=== PATIENT | female | born 1935 | race Caucasian/White ===

== ENCOUNTER 2016-10-25 08:23 | Day surgery (SDC) | payer MEDICARE, BC ==
[2016-10-25] MEDS ORDERED: Sodium Chloride 0.9% 10 ML Syringe FLUSH PRN (08:30)
[2016-10-25 11:33] VITALS: BP 156/78
--- NOTE | 2016-10-25 14:47 | OR ---
DATE OF PROCEDURE: 10/25/2016 POSTOPERATIVE CARE: Postoperative care will be provided mainly at the [address] [place] [address] [facility] in conjunction with [facility]. PREOPERATIVE DIAGNOSIS: Cataract, right eye. PREOPERATIVE DIAGNOSIS: Cataract, right eye. PROCEDURE: Phacoemulsification with intraocular lens placement, right eye. ANESTHESIA: Topical and intracameral. ESTIMATED BLOOD LOSS: Minimal. COMPLICATIONS: None. PATHOLOGY SPECIMENS: None. SURGICAL FINDINGS: None. INDICATION FOR PROCEDURE: The patient is an 80-year-old female with history of a visually significant cataract in the right eye, which interfered with activities of daily living. This consisted of a nuclear sclerosis cataract. Following careful discussion of the risks, benefits and alternatives to cataract extraction with intraocular lens placement including blindness and , the patient elected to proceed, and informed, written consent was obtained prior to the procedure. DESCRIPTION OF THE PROCEDURE: The patient was previously identified, and a kyara placed above the right eye. All sources, including the patient, indicated that the right eye was the correct eye. The patient was subsequently taken to the operating room where standard monitors were applied. The patient was then prepped and draped in the usual sterile fashion for ophthalmic surgery. Attention was first directed at the 12 o'clock position where a paracentesis port was fashioned. Shugar solution followed by Viscoat was instilled into the eye. Attention was then directed to the 8:30 position where a triplanar incision was made in a near-clear manner using a keratome. A continuous capsulorrhexis was then made using a combination of the cystotome and Utrata forceps. Hydrodissection was achieved using a balanced salt solution, and the lens rotated nicely. Phacoemulsification was then done using a modified [id number] technique without complication. Phaco time was 9.66 CDE. The remaining cortex was removed using the irrigation/aspiration handpiece. Provisc was then instilled into the eye. A Technis lens, model [id number], at 18.0 diopters was then placed in the capsular bag using an [place] injector. The remaining viscoelastic was removed using the irrigation/aspiration forceps. All wounds were then checked and found to be watertight. The lid speculum and drapes were removed. Maxitrol ointment was placed in the patient's right eye, and the eye was shielded. The patient tolerated the procedure well. The patient was instructed to follow up tomorrow. All needle and sponge counts were correct at the end of the procedure. Rebecca Alanis MD /[id number]
== END 2016-10-25 11:30 | disposition home or self-care (01) ==
LOC: JP.SDS 08:23
PROVIDERS: ATTEND Ophthalmology
DX: H26.9 Unspecified cataract (principal); I10 Essential (primary) hypertension; E78.5 Hyperlipidemia, unspecified
CPT/HCPCS: 66984; C1780

== ENCOUNTER 2017-05-03 14:00 | Observation (INO) | payer MEDICARE, BC ==
[2017-05-03] MEDS ORDERED: Ondansetron 4 MG/2 ML SDV ONE (14:12)
[2017-05-03] MEDS ORDERED: diphenhydrAMINE 50 MG/ML SDV ONE (14:12)
--- NOTE | 2017-05-03 14:50 | EDM.PDOC ---
ED HPI GENERAL MEDICAL PROBLEM - General Chief Complaint: General Stated Complaint: VERTIGO, VIA NORTH Time Seen by Provider: 05/03/17 14:40 Source of Information: Reports: Patient, Old Records, RN History Limitations: Reports: No Limitations - History of Present Illness INITIAL COMMENTS - FREE TEXT/NARRATIVE: 81 yo female sent in with severe vertigo associated with nausea/vomiting. Has had this in the past, but not as severe. Vomited x 1 today. Sx's worse when she turns her head. Onset: Today, Sudden Onset Date: 05/03/17 Duration: Hour(s): Location: Reports: Head Quality: Reports: Other (no pain) Severity: Severe Improves with: Reports: Rest Worsens with: Reports: Movement Context: Reports: Other (pHx of the same, less severe. ) Associated Symptoms: Reports: Nausea/Vomiting. 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) (none) - Related Data Allergies Allergy/AdvReac Type Severity Reaction Status Date / Time No Known Allergies Allergy Verified 10/25/16 08:52 Home Meds: Home Meds Amoxicillin [Amoxicillin] 500 mg PO ASDIRECTED 05/16/16 [History] Aspirin [Ecotrin] 81 mg PO DAILY 05/16/16 [History] Hydrochlorothiazide [Hydrochlorothiazide] 12.5 mg PO DAILY 05/16/16 [History] Metoprolol Succinate [Metoprolol Succinate] 25 mg PO DAILY 05/16/16 [History] Lactobacillus Acidophilus [Probiotic] 1 cap PO DAILY 10/25/16 [History] Past Medical History HEENT History: Reports: None, Cataract Cardiovascular History: Reports: Heart Murmur, High Cholesterol, Hypertension Gastrointestinal History: Reports: Chronic Diarrhea, Colon Polyp, GERD Genitourinary History: Reports: None 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: Musculoskeletal History: Reports: Back Pain, Chronic Psychiatric History: Reports: Anxiety, Depression - Infectious Disease History Infectious Disease History: Reports: Chicken Pox, Measles, Mumps - Past Surgical History HEENT Surgical History: Reports: Adenoidectomy, Tonsillectomy Female Surgical History: Reports: Hysterectomy, Oophorectomy, Other (See Below) Musculoskeletal Surgical History: Reports: Arthroscopic Knee, Other (See Below) Dermatological Surgical History: Reports: Skin Biopsy Social & Family History - Family History Family Medical History: Noncontributory - Tobacco Use Smoking Status *Q: Never Smoker Used Tobacco, but Quit: No Second Hand Smoke Exposure: No - Caffeine Use Caffeine Use: Reports: Coffee - Alcohol Use Days Per Week of Alcohol Use: 0 - Recreational Drug Use Recreational Drug Use: No ED ROS GENERAL - Review of Systems Review Of Systems: See Below Constitutional: Reports: No Symptoms HEENT: Reports: No Symptoms Respiratory: Reports: No Symptoms Cardiovascular: Reports: No Symptoms GI/Abdominal: Reports: Nausea, Vomiting. Denies: Diarrhea Skin: Reports: No Symptoms Neurological: Reports: Dizziness (vertigo) Psychiatric: Reports: No Symptoms ED EXAM, GENERAL - Physical Exam Exam: See Below Exam Limited By: No Limitations General Appearance: Alert, WD/WN, No Apparent Distress Eye Exam: Bilateral Eye: Nystagmus, PERRL Ears: Normal External Exam, Normal Canal, Hearing Grossly Normal, Normal TMs Ear Exam: Bilateral Ear: Auricle Normal, Canal Normal, TM normal Nose: Normal Inspection, Normal Mucosa, No Blood Throat/Mouth: Normal Inspection, Normal Lips, Normal Teeth, Normal Oropharynx, Normal Voice, No Airway Compromise Head: Atraumatic, Normocephalic Neck: Normal Inspection, Supple, Non-Tender Respiratory/Chest: No Respiratory Distress, Lungs Clear, Normal Breath Sounds, No Accessory Muscle Use Cardiovascular: Regular Rate, Rhythm, No Edema GI/Abdominal: Soft, Non-Tender Neurological: Alert, Oriented, CN II-XII Intact, Normal Cognition, No Motor/ Sensory Deficits Psychiatric: Normal Affect, Normal Mood Skin Exam: Warm, Dry, Intact, Normal Color, No Rash Lymphatic: No Adenopathy Course - Vital Signs Text/Narrative:: Minimal improvement with IV diphenhydramine and IV Diazepam. Last Recorded V/S: Last Vital Signs Temp 34.8 C L 05/03/17 14:24 Pulse 69 05/03/17 16:57 Resp 18 05/03/17 14:24 BP 148/80 H 05/03/17 16:57 Pulse Ox 97 05/03/17 16:57 - Orders/Labs/Meds Orders: Active Orders 24 hr Category Date Time Status Head wo Cont [CT] Stat Exams 05/03/17 16:33 Taken UA W/MICROSCOPIC [URIN] Stat Lab 05/03/17 15:33 Uncollected Sodium Chloride 0.9% [Saline Flush] Med 05/03/17 15:00 Active 10 ml FLUSH ASDIRECTED PRN Saline Lock Insert [OM.PC] Routine Oth 05/03/17 15:00 Ordered Medication Orders Sodium Chloride (Saline Flush) 10 ml FLUSH ASDIRECTED PRN PRN Reason: Keep Vein Open Last Admin: 05/03/17 16:01 Dose: 10 ml Labs: Laboratory Tests 05/03/17 05/03/17 Range/Units 15:43 15:43 WBC 8.3 (4.5-11.0) K/uL RBC 4.62 (3.30-5.50) M/uL Hgb 13.9 (12.0-15.0) g/dL Hct 43.0 (36.0-48.0) % MCV 93 (80-98) fL MCH 30 (27-31) pg MCHC 32 (32-36) % Plt Count 240 (150-400) K/uL Sodium 137 L (140-148) mmol/L Potassium 4.2 (3.6-5.2) mmol/L Chloride 101 (100-108) mmol/L Carbon Dioxide 28 (21-32) mmol/L Anion Gap 12.2 (5.0-14.0) mmol/L BUN 27 H (7-18) mg/dL Creatinine 1.1 H (0.6-1.0) mg/dL Est Cr Clr Drug Dosing 40.46 mL/min Estimated GFR (MDRD) 48 L (>60) Glucose 107 H (74-106) mg/dL Calcium 9.0 (8.5-10.1) mg/dL Meds: Medications Generic Name Dose Route Start Last Admin Trade Name Freq PRN Reason Stop Dose Admin Sodium Chloride 10 ml 05/03/17 15:00 05/03/17 16:01 Saline Flush FLUSH 10 ml ASDIRECTED PRN Administration Keep Vein Open Discontinued Medications Generic Name Dose Route Start Last Admin Trade Name Freq PRN Reason Stop Dose Admin Diazepam 5 mg 05/03/17 15:31 Valium IVPUSH 05/03/17 15:32 ONETIME ONE Diazepam 4 mg 05/03/17 15:40 05/03/17 16:01 Valium IVPUSH 05/03/17 15:41 4 mg ONETIME ONE Administration Diphenhydramine HCl Confirm 05/03/17 14:12 Benadryl Administered 05/03/17 14:13 Dose 50 mg .ROUTE .STK-MED ONE Diphenhydramine HCl 50 mg 05/03/17 14:59 05/03/17 15:29 Benadryl IVPUSH 05/03/17 15:00 50 mg ONETIME ONE Administration Diphenhydramine HCl 25 mg 05/03/17 15:23 05/03/17 15:29 Benadryl IVPUSH 05/03/17 15:24 25 mg ONETIME ONE Administration Sodium Chloride 1,000 mls @ 1,000 mls/hr 05/03/17 16:32 05/03/17 17:12 Normal Saline IV 05/03/17 17:31 1,000 mls/hr .BOLUS ONE Administration Ondansetron HCl Confirm 05/03/17 14:12 Zofran Administered 05/03/17 14:13 Dose 4 mg .ROUTE .STK-MED ONE Ondansetron HCl 4 mg 05/03/17 15:00 05/03/17 15:28 Zofran IVPUSH 05/03/17 15:01 4 mg ONETIME ONE Administration Ondansetron HCl 4 mg 05/03/17 15:23 05/03/17 15:29 Zofran IVPUSH 05/03/17 15:24 4 mg ONETIME ONE Administration - Radiology Interpretation Free Text/Narrative:: No acute findings on head CT scan per radiology. CT Results Date: 05/03/17 CT Results Time: 17:30 Departure - Departure Time of Disposition: 18:00 Disposition: Refer to Observation Condition: Fair Clinical Impression: Vertigo Nausea & vomiting Qualifiers: Vomiting type: unspecified Vomiting Intractability: non-intractable Qualified Code(s): R11.2 - Nausea with vomiting, unspecified Clinical Impression: (Ruled Out): BPV (benign positional vertigo) - Discharge Information Referrals: Fausto Neri MD [Primary Care Provider] - Forms: ED Department Discharge - My Orders Last 24 Hours: My Active Orders 05/03/17 15:00 Sodium Chloride 0.9% [Saline Flush] 10 ml FLUSH ASDIRECTED PRN Saline Lock Insert [OM.PC] Routine 05/03/17 15:33 UA W/MICROSCOPIC [URIN] Stat 05/03/17 16:33 Head wo Cont [CT] Stat - Assessment/Plan Last 24 Hours: My Active Orders 05/03/17 15:00 Sodium Chloride 0.9% [Saline Flush] 10 ml FLUSH ASDIRECTED PRN Saline Lock Insert [OM.PC] Routine 05/03/17 15:33 UA W/MICROSCOPIC [URIN] Stat 05/03/17 16:33 Head wo Cont [CT] Stat
[2017-05-03] MEDS ORDERED: diphenhydrAMINE 50 MG/ML SDV IVPUSH ONE ×2 (14:59→15:23)
[2017-05-03] MEDS ORDERED: Ondansetron 4 MG/2 ML SDV IVPUSH ONE ×2 (15:00→15:23)
[2017-05-03] MEDS ORDERED: Sodium Chloride 0.9% 10 ML Syringe FLUSH PRN ×2 (15:00→19:41)
[2017-05-03] MEDS ORDERED: Sodium Chloride 0.9% 1,000 ML IV ONE (16:32)
--- NOTE | 2017-05-03 18:49 | PCM.HP ---
H&P History of Present Illness - General Date of Service: 05/03/17 Admit Problem/Dx: Admission Diagnosis/Problem Admission Diagnosis/Problem Vertigo Source of Information: Patient, Family, Provider, RN Notes Reviewed History Limitations: Reports: No Limitations - History of Present Illness Initial Comments - Free Text/Narative: Ms. Luna is an 81-year-old woman who is admitted through the emergency department to observation status for management of nausea and vomiting related to vertigo. She felt well until mid day when she noted abrupt onset of vertigo associated with nausea and vomiting. Vertigo definitely would definitely worsen with movement of the head especially to the right. She was brought into the emergency department for further evaluation, labs are unremarkable and CT scan of the head showed no acute abnormalities. Nausea has been controlled with medication in the emergency department but she is unable to stand because of the vertigo. - Related Data Allergies/Adverse Reactions: Allergies Allergy/AdvReac Type Severity Reaction Status Date / Time No Known Allergies Allergy Verified 10/25/16 08:52 Home Medications: Home Meds Amoxicillin [Amoxicillin] 500 mg PO ASDIRECTED 05/16/16 [History] Aspirin [Ecotrin] 81 mg PO DAILY 05/16/16 [History] Hydrochlorothiazide [Hydrochlorothiazide] 12.5 mg PO DAILY 05/16/16 [History] Metoprolol Succinate [Metoprolol Succinate] 25 mg PO DAILY 05/16/16 [History] Lactobacillus Acidophilus [Probiotic] 1 cap PO DAILY 10/25/16 [History] Past Medical History HEENT History: Reports: None, Cataract Cardiovascular History: Reports: Heart Murmur, High Cholesterol, Hypertension Gastrointestinal History: Reports: Chronic Diarrhea, Colon Polyp, GERD Genitourinary History: Reports: 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: Musculoskeletal History: Reports: Back Pain, Chronic Psychiatric History: Reports: Anxiety, Depression - Infectious Disease History Infectious Disease History: Reports: Chicken Pox, Measles, Mumps - Past Surgical History HEENT Surgical History: Reports: Adenoidectomy, Tonsillectomy Female Surgical History: Reports: Hysterectomy, Oophorectomy, Other (See Below) Musculoskeletal Surgical History: Reports: Arthroscopic Knee, Other (See Below) Dermatological Surgical History: Reports: Skin Biopsy Social & Family History - Family History Family Medical History: Noncontributory - Tobacco Use Smoking Status *Q: Never Smoker Used Tobacco, but Quit: No Second Hand Smoke Exposure: No - Caffeine Use Caffeine Use: Reports: Coffee - Alcohol Use Days Per Week of Alcohol Use: 0 - Recreational Drug Use Recreational Drug Use: No H&P Review of Systems - Review of Systems: Review Of Systems: See Below General: Denies: Fever, Chills, Weakness HEENT: Denies: Ear Pain, Eye Pain, Headaches, Hearing Changes Pulmonary: Reports: No Symptoms Cardiovascular: Reports: No Symptoms Gastrointestinal: Reports: Nausea, Vomiting. Denies: Abdominal Pain, Anorexia, Black Stool, Bloody Stool, Constipation, Diarrhea, Difficulty Swallowing, Distension Genitourinary: Reports: No Symptoms Musculoskeletal: Reports: No Symptoms Skin: Reports: No Symptoms Psychiatric: Reports: No Symptoms Neurological: Reports: No Symptoms Hematologic/Lymphatic: Reports: No Symptoms Immunologic: Reports: No Symptoms Exam - Exam Exam: See Below - Vital Signs Vital Signs: Last Vital Signs Temp 94.6 F L 05/03/17 14:24 Pulse 69 05/03/17 16:57 Resp 18 05/03/17 14:24 BP 148/80 H 05/03/17 16:57 Pulse Ox 97 05/03/17 16:57 Weight: 156 lb - Exam Quality Assessment: DVT Prophylaxis General: Alert, Oriented, Cooperative, Moderate Distress HEENT: Conjunctiva Clear, Hearing Intact, Mucosa Moist & [place], Normal Nasal Septum, Posterior Pharynx Clear, Pupils Equal, Pupils Reactive, TMs Clear Neck: Supple, Trachea Midline, +2 Carotid Pulse wo Bruit Lungs: Clear to Auscultation, Normal Respiratory Effort Cardiovascular: Regular Rate, Regular Rhythm, Normal S1, Normal S2. No: Systolic Murmur, Diastolic Murmur GI/Abdominal Exam: Normal Bowel Sounds, Soft, Non-Tender, No Organomegaly, No Distention Extremities: Non-Tender, No Pedal Edema Skin: Warm, Dry, Intact Neurological: Cranial Nerves Intact, Strength Equal Bilateral, Normal Speech, Normal Tone, Sensation Intact. No: Focal Deficit Neuro Extensive - Mental Status: Alert, Oriented x3, Normal Mood/Affect, Normal Cognition, Memory Intact - Patient Data Lab Results Last 24 hrs: Laboratory Results - last 24 hr 05/03/17 05/03/17 Range/Units 15:43 15:43 WBC 8.3 (4.5-11.0) K/uL RBC 4.62 (3.30-5.50) M/uL Hgb 13.9 (12.0-15.0) g/dL Hct 43.0 (36.0-48.0) % MCV 93 (80-98) fL MCH 30 (27-31) pg MCHC 32 (32-36) % Plt Count 240 (150-400) K/uL Sodium 137 L (140-148) mmol/L Potassium 4.2 (3.6-5.2) mmol/L Chloride 101 (100-108) mmol/L Carbon Dioxide 28 (21-32) mmol/L Anion Gap 12.2 (5.0-14.0) mmol/L BUN 27 H (7-18) mg/dL Creatinine 1.1 H (0.6-1.0) mg/dL Est Cr Clr Drug Dosing 40.46 mL/min Estimated GFR (MDRD) 48 L (>60) Glucose 107 H (74-106) mg/dL Calcium 9.0 (8.5-10.1) mg/dL Result Diagrams: 05/03/17 15:43 05/03/17 15:43 *Q Meaningful Use (ADM) - VTE *Q VTE Criteria *Q: - VTE Risk Assess *Q Each Risk Factor Represents 1 Point: None Total Score 1 Point Risk Factors: 0 Each Risk Factor Represents 2 Points: None Total Score 2 Point Risk Factors: 0 Each Risk Factor Represents 3 Points: Age 75 Years or Greater Total Score 3 Point Risk Factors: 3 Each Risk Factor Represents 5 Points: None Total Score 5 Point Risk Factors: 0 Venous Thromboembolism Risk Factor Score *Q: 3 - Stroke *Q Stroke Criteria *Q: - AMI *Q AMI Criteria *Q: Problem List Initiated/Reviewed/Updated: Yes Orders Last 24hrs: Active Orders 24 hr Category Date Time Status Patient Status Manage Transfer [TRANSFER] Routine ADT 05/03/17 18:38 Ordered Head wo Cont [CT] Stat Exams 05/03/17 16:33 Taken UA W/MICROSCOPIC [URIN] Stat Lab 05/03/17 15:33 Uncollected Sodium Chloride 0.9% [Saline Flush] Med 05/03/17 15:00 Active 10 ml FLUSH ASDIRECTED PRN Saline Lock Insert [OM.PC] Routine Oth 05/03/17 15:00 Ordered Resuscitation Status Routine Resus Stat 05/03/17 18:39 Ordered Medication Orders Sodium Chloride (Saline Flush) 10 ml FLUSH ASDIRECTED PRN PRN Reason: Keep Vein Open Last Admin: 05/03/17 16:01 Dose: 10 ml Assessment/Plan Comment:: ASSESSMENT AND PLAN POSITIONAL VERTIGO-abrupt onset today, associated with nausea vomiting, worse with movement of the head to the right. No other neurologic deficits, CT scan of the head unremarkable. Nausea has been controlled with medical therapy but she has ongoing vertigo leaving her unable to move or walk. -Observation admission -Anti-medic therapy as needed -PT consult in a.m. -IV fluids for hydration CORONARY ARTERY DISEASE-currently asymptomatic -Continue outpatient medical regimen MAINTENANCE ISSUES -DVT prophylaxis; Lovenox 40 mg subcutaneous daily -GI prophylaxis; not indicated -Faulkner catheter; not indicated -Nutrition; regular diet -Nicotinic dependence; not required CODE STATUS-FULL CODE ADMISSION STATUS-this patient will be admitted to observation status, expect no more than a one night hospital stay for evaluation and management of problems as outlined above. DISPOSITION-anticipate discharge to home after the hospital stay. PRIMARY CARE PROVIDER-Dr. Neri
[2017-05-03] MEDS ORDERED: LORazepam 2 MG/ML MDV IV PRN (19:41)
[2017-05-03] MEDS ORDERED: oxyCODONE 5 MG Tab PO PRN (19:41)
[2017-05-03] MEDS ORDERED: Magnesium Hydroxide 400 MG/5 ML Susp 30 ML Cup PO PRN (19:41)
[2017-05-03] MEDS ORDERED: Ondansetron 4 MG/2 ML SDV IV PRN (19:41)
[2017-05-03] MEDS ORDERED: Docusate Sodium 100 MG Cap PO PRN (19:41)
[2017-05-03] MEDS ORDERED: Sodium Chloride 0.9% 1,000 ML IV SCH (19:41)
[2017-05-03] MEDS ORDERED: Acetaminophen 325 MG Tab PO PRN (19:41)
[2017-05-03] MEDS ORDERED: Polyethylene Glycol 3350 Powder 17 GM Packet PO PRN (19:41)
[2017-05-03] MEDS: Enoxaparin 40 MG/0.4 ML Syringe SUBCUT SCH (21:32)
[2017-05-04] MEDS ORDERED: Metoprolol Succinate 25 MG Tab.ER PO SCH (09:00)
[2017-05-04] MEDS ORDERED: Hydrochlorothiazide 12.5 MG Cap PO SCH (09:00)
[2017-05-04] MEDS ORDERED: Lactobacillus Rhamnosus GG (Probiotic) Cap PO SCH (09:00)
[2017-05-04] MEDS: Aspirin 81 MG Tab.EC PO SCH (09:45)
[2017-05-04] MEDS: METOPROLOL SUCCINATE 50 MG PO SCH (09:45)
[2017-05-04] MEDS: HYDROCHLOROTHIAZIDE 25 MG PO SCH (09:45)
--- NOTE | 2017-05-04 11:10 | PCM.PN ---
- General Info Date of Service: 05/04/17 Subjective Update: Ms. Luna has noted moderate improvement in her vertigo since admission, nausea and vomiting have essentially resolved. Still gets some component of vertiginous symptoms when she gets up and moves about. Appetite has improved and she is tolerated eating. She has been seen by physical therapy this morning. - Patient Data Vitals - Most Recent: Last Vital Signs Temp 97.8 F 05/04/17 08:37 Pulse 72 05/04/17 08:37 Resp 12 05/04/17 08:37 BP 126/69 05/04/17 08:37 Pulse Ox 95 05/04/17 08:37 Weight - Most Recent: 156 lb I&O - Last 24 Hours: Intake & Output 05/03/17 05/04/17 05/04/17 22:59 06:59 14:59 Intake Total 120 340 Output Total 550 600 450 Balance -430 -600 -110 Lab Results Last 24 Hours: Laboratory Results - last 24 hr 05/03/17 Range/Units 18:45 Urine Color Yellow Urine Appearance Cloudy Urine pH 5.0 (4.5-8.0) Ur Specific [place] 1.015 (1.008-1.030) Urine Protein Negative (NEGATIVE) mg/dL Urine Glucose (UA) Normal (NEGATIVE) mg/dL Urine Ketones Negative (NEGATIVE) mg/dL Urine Occult Blood Negative (NEGATIVE) Urine Nitrite Positive H (NEGATIVE) Urine Bilirubin Negative (NEGATIVE) Urine Urobilinogen Normal (NORMAL) mg/dL Ur Leukocyte Esterase Small (NEGATIVE) Urine RBC 0-5 (0-5) Urine WBC 10-20 H (0-5) Ur Epithelial Cells Few Amorphous Sediment Few Urine Bacteria Many Urine Mucus Few Med Orders - Current: Current Medications Acetaminophen (Tylenol) 650 mg PO Q4H PRN PRN Reason: Pain (Mild 1-3)/fever Aspirin (Halfprin) 81 mg PO DAILY SHILA Docusate Sodium (Colace) 100 mg PO BID PRN PRN Reason: Constipation Enoxaparin Sodium (Lovenox) 40 mg SUBCUT Q24H [facility] Last Admin: 05/03/17 21:32 Dose: Not Given Hydrochlorothiazide (Hydrochlorothiazide) 12.5 mg PO DAILY [facility] Lactobacillus Rhamnosus (Culturelle) 1 cap PO DAILY SHILA Lorazepam (Ativan) 0.5 mg IV Q2H PRN PRN Reason: Nausea/Vomiting Magnesium Hydroxide (Milk Of Magnesia) 30 ml PO Q12H PRN PRN Reason: Constipation Metoprolol Succinate (Toprol Xl) 25 mg PO DAILY SHILA Ondansetron HCl (Zofran) 4 mg IV Q4H PRN PRN Reason: Nausea/Vomiting Oxycodone HCl (Oxycodone) 5 mg PO Q4H PRN PRN Reason: Pain (moderate 4-6) Polyethylene Glycol (Miralax) 17 gm PO DAILY PRN PRN Reason: Constipation Sodium Chloride (Saline Flush) 10 ml FLUSH ASDIRECTED PRN PRN Reason: Keep Vein Open Discontinued Medications Diazepam (Valium) 5 mg IVPUSH ONETIME ONE Stop: 05/03/17 15:32 Last Admin: 05/03/17 19:45 Dose: Not Given Diazepam (Valium) 4 mg IVPUSH ONETIME ONE Stop: 05/03/17 15:41 Last Admin: 05/03/17 16:01 Dose: 4 mg Diphenhydramine HCl (Benadryl) Confirm Administered Dose 50 mg .ROUTE .STK-MED ONE Stop: 05/03/17 14:13 Last Admin: 05/03/17 19:44 Dose: Not Given Diphenhydramine HCl (Benadryl) 50 mg IVPUSH ONETIME ONE Stop: 05/03/17 15:00 Last Admin: 05/03/17 15:29 Dose: 50 mg Diphenhydramine HCl (Benadryl) 25 mg IVPUSH ONETIME ONE Stop: 05/03/17 15:24 Last Admin: 05/03/17 15:29 Dose: 25 mg Sodium Chloride (Normal Saline) 1,000 mls @ 1,000 mls/hr IV .BOLUS ONE Stop: 05/03/17 17:31 Last Admin: 05/03/17 17:12 Dose: 1,000 mls/hr Sodium Chloride (Normal Saline) 1,000 mls @ 125 mls/hr IV ASDIRECTED [facility] Last Admin: 05/04/17 04:11 Dose: 125 mls/hr Ondansetron HCl (Zofran) Confirm Administered Dose 4 mg .ROUTE .STK-MED ONE Stop: 05/03/17 14:13 Last Admin: 05/03/17 19:45 Dose: Not Given Ondansetron HCl (Zofran) 4 mg IVPUSH ONETIME ONE Stop: 05/03/17 15:01 Last Admin: 05/03/17 15:28 Dose: 4 mg Ondansetron HCl (Zofran) 4 mg IVPUSH ONETIME ONE Stop: 05/03/17 15:24 Last Admin: 05/03/17 15:29 Dose: 4 mg Sodium Chloride (Saline Flush) 10 ml FLUSH ASDIRECTED PRN PRN Reason: Keep Vein Open Last Admin: 05/03/17 16:01 Dose: 10 ml - Exam Quality Assessment: DVT Prophylaxis General: Alert, Oriented, Cooperative, Mild Distress Lungs: Clear to Auscultation, Normal Respiratory Effort Cardiovascular: Regular Rate, Regular Rhythm, No Murmurs GI/Abdominal Exam: Normal Bowel Sounds, Soft, Non-Tender, No Organomegaly, No Distention Extremities: Non-Tender, No Pedal Edema Skin: Warm, Dry, Intact - Problem List Review Problem List Initiated/Reviewed/Updated: Yes - My Orders Last 24 Hours: My Active Orders 05/03/17 18:39 Resuscitation Status Routine 05/03/17 19:41 Patient Status [ADT] Routine Ambulate [RC] QID Height and Weight [RC] DAILY Intake and Output [RC] QSHIFT Notify Provider Vital Signs [RC] ASDIRECTED Oxygen Therapy [RC] PRN Peripheral IV Care [RC] . DIRECTED Up With Assistance [RC] ASDIRECTED Up to Chair [RC] QID VTE/DVT Education [RC] Per Unit Routine Vital Signs [RC] Q4H PT Evaluation and Treatment [CONS] Routine Acetaminophen [Tylenol] 650 mg PO Q4H PRN Docusate Sodium [Colace] 100 mg PO BID PRN LORazepam [Ativan] 0.5 mg IV Q2H PRN Magnesium Hydroxide [Milk of Magnesia] 30 ml PO Q12H PRN Ondansetron [Zofran] 4 mg IV Q4H PRN Polyethylene Glycol 3350 [MiraLAX] 17 gm PO DAILY PRN Sodium Chloride 0.9% [Saline Flush] 10 ml FLUSH ASDIRECTED PRN oxyCODONE 5 mg PO Q4H PRN Peripheral IV Insertion Adult [OM.PC] Routine 05/03/17 20:00 Enoxaparin [Lovenox] 40 mg SUBCUT Q24H 05/03/17 Dinner Regular Diet [DIET] 05/04/17 09:00 Hydrochlorothiazide 12.5 mg PO DAILY Metoprolol Succinate [Toprol XL] 25 mg PO DAILY 05/04/17 11:07 Convert IV to Saline Lock [OM.PC] Routine - Plan Plan:: ASSESSMENT AND PLAN POSITIONAL VERTIGO-moderate improvement since admission, nausea vomiting have resolved. I did perform otolith repositioning maneuvers this morning, she did not note significant improvement following this. Plan to monitor an additional 24 hours with plan for discharge to home tomorrow -Observation admission -Anti-medic therapy as needed -PT follow-up -Saline lock IV CORONARY ARTERY DISEASE-currently asymptomatic -Continue outpatient medical regimen MAINTENANCE ISSUES -DVT prophylaxis; Lovenox 40 mg subcutaneous daily -GI prophylaxis; not indicated -Faulkner catheter; not indicated -Nutrition; regular diet -Nicotinic dependence; not required CODE STATUS-FULL CODE ADMISSION STATUS-this patient will be admitted to observation status, expect no more than a one night hospital stay for evaluation and management of problems as outlined above. DISPOSITION-anticipate discharge to home tomorrow PRIMARY CARE PROVIDER-Dr. Neri
[2017-05-04] MEDS: Enoxaparin 40 MG/0.4 ML Syringe SUBCUT SCH (20:39)
[2017-05-05] MEDS ORDERED: ACIDOPHILUS PROBIOTIC PO SCH (09:00)
--- NOTE | 2017-05-05 10:12 | PCM.DCSUM1 ---
Discharge Summary - Hospital Course Brief History: Ms. Luna is an 81-year-old woman who was admitted to observation status with intractable nausea and vomiting secondary to positional vertigo. - Discharge Data Discharge Date: 05/05/17 Discharge Disposition: Home, Self-Care 01 Condition: Fair - Discharge Diagnosis/Problem(s) (1) Positional vertigo of right ear SNOMED Code(s): 685216301 ICD Code: H81.11 - BENIGN PAROXYSMAL VERTIGO, RIGHT EAR Status: Acute Current Visit: Yes (2) Nausea & vomiting SNOMED Code(s): 80094300 ICD Code: R11.2 - NAUSEA WITH VOMITING, UNSPECIFIED Status: Acute Current Visit: Yes Qualifiers: Vomiting type: unspecified Vomiting Intractability: non-intractable Qualified Code(s): R11.2 - Nausea with vomiting, unspecified - Patient Summary/Data Consults: Consultations 05/03/17 19:41 PT Evaluation and Treatment [CONS] Routine Please Evaluate and Treat. PT Reason for Consult: Vertigo This query below is only for informational purposes and is not editable. Hospital Course: Ms. Luna is an 81-year-old woman who developed abrupt onset of vertigo associated with severe nausea and vomiting. She was brought into the emergency department and treated aggressively for the nausea and vomiting. This improved but she continued to experience severe vertigo leaving her unable to transfer or ambulate. CT scan of the head without contrast was obtained in the emergency department and showed no evidence of acute abnormalities. She was admitted to the hospital on observation status for hydration and further management. Initially received IV fluids for hydration and was also seen by physical therapy for the vertigo. On the day after admission oral at repositioning maneuvers were performed which did seem to help modestly. By the day of discharge her vertigo nausea and vomiting had entirely resolved and she was feeling close to baseline. Follow-up appointment will be scheduled with her primary care provider Dr. Neri within one week. Activity will be as tolerated and she will resume her usual diet. - Patient Instructions Diet: Usual Diet as Tolerated Activity: As Tolerated Other/Special Instructions: Please schedule follow-up appointment with Dr. Neri within one week. - Discharge Plan Home Medications: Home Meds Amoxicillin 500 mg PO ASDIRECTED 05/16/16 [History] Aspirin [Ecotrin] 81 mg PO DAILY 11/16/16 [History] Hydrochlorothiazide 12.5 mg PO DAILY 05/16/16 [History] Metoprolol Succinate 25 mg PO DAILY 05/16/16 [History] Lactobacillus Acidophilus [Probiotic] 1 cap PO DAILY 10/25/16 [History] Sertraline [Zoloft] 25 mg PO DAILY 05/04/17 [History] Referrals: Fausto Neri MD [Primary Care Provider] - - Patient Data Vitals - Most Recent: Last Vital Signs Temp 97.8 F 05/05/17 07:13 Pulse 66 05/05/17 07:13 Resp 16 05/05/17 07:13 BP 140/77 05/05/17 07:13 Pulse Ox 95 05/05/17 07:13 Weight - Most Recent: 170 lb 9.6 oz I&O - Last 24 hours: Intake & Output 05/04/17 05/05/17 05/05/17 23:59 06:59 14:59 Intake Total 480 Output Total 700 Balance -220 Med Orders - Current: Current Medications Acetaminophen (Tylenol) 650 mg PO Q4H PRN PRN Reason: Pain (Mild 1-3)/fever Aspirin (Halfprin) 81 mg PO DAILY [facility] Last Admin: 05/04/17 09:45 Dose: 81 mg Docusate Sodium (Colace) 100 mg PO BID PRN PRN Reason: Constipation Enoxaparin Sodium (Lovenox) 40 mg SUBCUT Q24H [facility] Last Admin: 05/04/17 20:39 Dose: Not Given Hydrochlorothiazide (Hydrochlorothiazide) 12.5 mg PO DAILY [facility] Last Admin: 05/04/17 09:45 Dose: 12.5 mg Lactobacillus Rhamnosus (Culturelle) 1 cap PO DAILY [facility] Lorazepam (Ativan) 0.5 mg IV Q2H PRN PRN Reason: Nausea/Vomiting Magnesium Hydroxide (Milk Of Magnesia) 30 ml PO Q12H PRN PRN Reason: Constipation Metoprolol Succinate (Toprol Xl) 25 mg PO DAILY [facility] Last Admin: 05/04/17 09:45 Dose: 25 mg Ondansetron HCl (Zofran) 4 mg IV Q4H PRN PRN Reason: Nausea/Vomiting Oxycodone HCl (Oxycodone) 5 mg PO Q4H PRN PRN Reason: Pain (moderate 4-6) Polyethylene Glycol (Miralax) 17 gm PO DAILY PRN PRN Reason: Constipation Sodium Chloride (Saline Flush) 10 ml FLUSH ASDIRECTED PRN PRN Reason: Keep Vein Open Discontinued Medications Diazepam (Valium) 5 mg IVPUSH ONETIME ONE Stop: 05/03/17 15:32 Last Admin: 05/03/17 19:45 Dose: Not Given Diazepam (Valium) 4 mg IVPUSH ONETIME ONE Stop: 05/03/17 15:41 Last Admin: 05/03/17 16:01 Dose: 4 mg Diphenhydramine HCl (Benadryl) Confirm Administered Dose 50 mg .ROUTE .STK-MED ONE Stop: 05/03/17 14:13 Last Admin: 05/03/17 19:44 Dose: Not Given Diphenhydramine HCl (Benadryl) 50 mg IVPUSH ONETIME ONE Stop: 05/03/17 15:00 Last Admin: 05/03/17 15:29 Dose: 50 mg Diphenhydramine HCl (Benadryl) 25 mg IVPUSH ONETIME ONE Stop: 05/03/17 15:24 Last Admin: 05/03/17 15:29 Dose: 25 mg Sodium Chloride (Normal Saline) 1,000 mls @ 1,000 mls/hr IV .BOLUS ONE Stop: 05/03/17 17:31 Last Admin: 05/03/17 17:12 Dose: 1,000 mls/hr Sodium Chloride (Normal Saline) 1,000 mls @ 125 mls/hr IV ASDIRECTED [facility] Last Admin: 05/04/17 04:11 Dose: 125 mls/hr Lactobacillus Rhamnosus (Culturelle) 1 cap PO DAILY [facility] Last Admin: 05/04/17 09:45 Dose: 1 cap Ondansetron HCl (Zofran) Confirm Administered Dose 4 mg .ROUTE .STK-MED ONE Stop: 05/03/17 14:13 Last Admin: 05/03/17 19:45 Dose: Not Given Ondansetron HCl (Zofran) 4 mg IVPUSH ONETIME ONE Stop: 05/03/17 15:01 Last Admin: 05/03/17 15:28 Dose: 4 mg Ondansetron HCl (Zofran) 4 mg IVPUSH ONETIME ONE Stop: 05/03/17 15:24 Last Admin: 05/03/17 15:29 Dose: 4 mg Sodium Chloride (Saline Flush) 10 ml FLUSH ASDIRECTED PRN PRN Reason: Keep Vein Open Last Admin: 05/03/17 16:01 Dose: 10 ml *Q Meaningful Use (DIS) - VTE *Q VTE Criteria *Q: - Stroke *Q Stroke Criteria *Q: - AMI *Q AMI Criteria *Q:
[2017-05-05] MEDS: METOPROLOL SUCCINATE 50 MG PO SCH (10:19)
[2017-05-05] MEDS: HYDROCHLOROTHIAZIDE 25 MG PO SCH (10:20)
[2017-05-05] MEDS: Aspirin 81 MG Tab.EC PO SCH (10:22)
[2017-05-05 10:24] VITALS: BP 144/77
== END 2017-05-05 12:50 | disposition home or self-care (01) ==
LOC: JP.ED 14:00 → JP.MS 18:38
PROVIDERS: ADMIT Hospitalist; ATTEND Hospitalist
DX: H81.11 Benign paroxysmal vertigo, right ear (principal); R11.2 Nausea with vomiting, unspecified; I10 Essential (primary) hypertension; E78.00 Pure hypercholesterolemia, unspecified; K21.9 Gastro-esophageal reflux disease without esophagitis; F41.9 Anxiety disorder, unspecified; F32.9 Major depressive disorder, single episode, unspecified; K52.9 Noninfective gastroenteritis and colitis, unspecified; Z79.82 Long term (current) use of aspirin; Z79.2 Long term (current) use of antibiotics; Z79.899 Other long term (current) drug therapy; Z90.710 Acquired absence of both cervix and uterus; Z98.890 Other specified postprocedural states
CPT/HCPCS: 36415; 70450; 80048; 81001; 85027; 87086; 87088; 87186; 96361; 96374; 96375; 96376; 97161; 97535; 99285; A9270; J1200; J2405; J3360; J7040; J7050; 99217; 99219; 99224; 99284; G0378

== ENCOUNTER 2018-02-14 12:27 | Emergency (ER) | payer MEDICARE, BC | END 2018-02-14 13:30 | disposition left against medical advice (07) | LOC: JP.ED 12:27 | DX: Z53.21 Procedure and treatment not carried out due to patient leaving prior to being seen by health care provider (principal) ==

== ENCOUNTER 2018-03-17 10:20 | Emergency (ER) | payer MEDICARE, BC ==
[2018-03-17 10:59] VITALS: BP 143/64
--- NOTE | 2018-03-17 11:24 | EDM.PDOC ---
ED HPI GENERAL MEDICAL PROBLEM - General Chief Complaint: Cardiovascular Problem Stated Complaint: LOW PULSE Time Seen by Provider: 03/17/18 11:09 Source of Information: Reports: Patient, Family, RN Notes Reviewed History Limitations: Reports: No Limitations - History of Present Illness INITIAL COMMENTS - FREE TEXT/NARRATIVE: 82-year-old female presents emergency department today complaint of slow heart rate and feeling poorly, she is had this issue for the last month or so has been evaluated by her primary care who has ordered a Holter monitor she is not had that placed. She is on metoprolol which she states she did stop for 2 week period time and felt no difference however she has not taken the medication today other than feeling tired and run down has no other complaints - Related Data Allergies Allergy/AdvReac Type Severity Reaction Status Date / Time No Known Allergies Allergy Verified 03/17/18 10:56 Home Meds: Home Meds Amoxicillin 500 mg PO ASDIRECTED 05/16/16 [History] Aspirin [Ecotrin] 81 mg PO DAILY 05/16/16 [History] Hydrochlorothiazide 12.5 mg PO DAILY 05/16/16 [History] Metoprolol Succinate 25 mg PO DAILY 05/16/16 [History] Lactobacillus Acidophilus [Probiotic] 1 cap PO DAILY 10/25/16 [History] Sertraline [Zoloft] 50 mg PO DAILY 05/04/17 [History] Diphenoxylate HCl/Atropine [Lomotil] 1 tab PO ASDIRECTED PRN 03/17/18 [History] Past Medical History HEENT History: Reports: Cataract Cardiovascular History: Reports: Heart Murmur, High Cholesterol, Hypertension Gastrointestinal History: Reports: Chronic Diarrhea, Colon Polyp, GERD 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: Musculoskeletal History: Reports: Back Pain, Chronic Neurological History: Reports: Vertigo Psychiatric History: Reports: Anxiety, Depression - Infectious Disease History Infectious Disease History: Reports: Chicken Pox, Measles, Mumps - Past Surgical History HEENT Surgical History: Reports: Adenoidectomy, Tonsillectomy Female Surgical History: Reports: Hysterectomy, Oophorectomy Musculoskeletal Surgical History: Reports: Arthroscopic Knee Dermatological Surgical History: Reports: Skin Biopsy Social & Family History - Family History Family Medical History: Noncontributory - Tobacco Use Smoking Status *Q: Never Smoker - Caffeine Use Caffeine Use: Reports: Coffee, Soda - Recreational Drug Use Recreational Drug Use: No ED ROS GENERAL - Review of Systems Review Of Systems: See Below Constitutional: Reports: Weakness, Fatigue HEENT: Reports: No Symptoms Respiratory: Reports: No Symptoms Cardiovascular: Reports: Other (bradycardia) GI/Abdominal: Reports: No Symptoms : Reports: No Symptoms ED EXAM, GENERAL - Physical Exam Exam: See Below Exam Limited By: No Limitations General Appearance: Alert, WD/WN, No Apparent Distress Eye Exam: Bilateral Eye: PERRL Ears: Normal External Exam ( an area of suspicious E [place] 6 not a hard time not to heart rate today bradycardia and A. fib with RVR chest pain), Normal Canal, Hearing Grossly Normal, Normal TMs Nose: Normal Inspection, Normal Mucosa, No Blood Throat/Mouth: Normal Inspection, Normal Lips, Normal Teeth, Normal Gums, Normal Oropharynx, Normal Voice, No Airway Compromise Head: Atraumatic, Normocephalic Neck: Normal Inspection, Supple, Non-Tender, Full Range of Motion Respiratory/Chest: No Respiratory Distress, Lungs Clear, Normal Breath Sounds, No Accessory Muscle Use Cardiovascular: Regular Rate, Rhythm, Systolic Murmur GI/Abdominal: Soft, Non-Tender Back Exam: Normal Inspection, Full Range of Motion Neurological: Alert, Oriented Course - Vital Signs Last Recorded V/S: Last Vital Signs Temp 96.7 F 03/17/18 10:59 Pulse 68 03/17/18 10:59 Resp 15 03/17/18 10:59 BP 143/64 H 03/17/18 10:59 Pulse Ox 99 03/17/18 10:59 - Orders/Labs/Meds Orders: Active Orders 24 hr Category Date Time Status Cardiac Monitoring [RC] .As Directed Care 03/17/18 11:17 Active EKG Documentation Completion [RC] ASDIRECTED Care 03/17/18 11:18 Active EKG 12 Lead [EK] Stat Ther 03/17/18 11:18 Ordered Labs: Laboratory Tests 03/17/18 03/17/18 03/17/18 Range/Units 11:38 11:38 11:38 WBC 8.6 (4.5-11.0) K/uL RBC 4.66 (3.30-5.50) M/uL Hgb 14.0 (12.0-15.0) g/dL Hct 42.7 (36.0-48.0) % MCV 92 (80-98) fL MCH 30 (27-31) pg MCHC 33 (32-36) % Plt Count 278 (150-400) K/uL Neut % (Auto) 75 H (36-66) % Lymph % (Auto) 17 L (24-44) % [place] % (Auto) 8 H (2-6) % Eos % (Auto) 1 L (2-4) % Baso % (Auto) 0 (0-1) % Sodium 139 L (140-148) mmol/L Potassium 3.7 (3.6-5.2) mmol/L Chloride 104 (100-108) mmol/L Carbon Dioxide 28 (21-32) mmol/L Anion Gap 10.7 (5.0-14.0) mmol/L BUN 20 H (7-18) mg/dL Creatinine 1.1 H (0.6-1.0) mg/dL Est Cr Clr Drug Dosing 39.78 mL/min Estimated GFR (MDRD) 48 L (>60) Glucose 99 (74-106) mg/dL Calcium 9.1 (8.5-10.1) mg/dL Total Bilirubin 0.5 (0.2-1.0) mg/dL AST 20 (15-37) U/L ALT 26 (12-78) U/L Alkaline Phosphatase 85 (46-116) U/L Troponin I < 0.017 (0.000-0.056) ng/mL Total Protein 6.6 (6.4-8.2) g/dL Albumin 3.4 (3.4-5.0) g/dL Globulin 3.2 (2.3-3.5) g/dL Albumin/Globulin Ratio 1.1 L (1.2-2.2) TSH, Ultra Sensitive 2.750 (0.358-3.740) uIU/mL Departure - Departure Time of Disposition: 13:37 Disposition: Home, Self-Care 01 Condition: Good Clinical Impression: Rula Horta Referrals: Fausto Neri MD [Primary Care Provider] - Forms: ED Department Discharge Additional Instructions: Start the calcium channel chandana of amlodipine 1 tablet once a day please follow-up with your primary care provider in the next 7-10 days call return to the emergency department worsening of symptoms - My Orders Last 24 Hours: My Active Orders 03/17/18 11:17 Cardiac Monitoring [RC] .As Directed 03/17/18 11:18 EKG Documentation Completion [RC] ASDIRECTED EKG 12 Lead [EK] Stat - Assessment/Plan Last 24 Hours: My Active Orders 03/17/18 11:17 Cardiac Monitoring [RC] .As Directed 03/17/18 11:18 EKG Documentation Completion [RC] ASDIRECTED EKG 12 Lead [EK] Stat Plan: Assessment Acuity = acute Site and laterality = bigeminy Etiology = unclear etiology Manifestations = none Location of injury = Home Lab values = CBC unremarkable, creatinine elevated 1.1 consistent chronic renal failure stage G IIIB, TSH normal euthymic at 2.75, EKG demonstrates bigeminy sinus rhythm, chest x-ray shows no acute process Plan Called discussed case with primary care provider he will see her in a couple day follow-up in the meantime we'll start a calcium channel chandana amlodipine 2.5 mg once a day in combination with metoprolol 25 mg once a day for reevaluation This note was dictated using [employer] voice recognition software please call with any questions on syntax or grammar.
--- NOTE | 2018-03-17 11:55 | CR ---
CHEST: 2 view CLINICAL HISTORY:Bradycardia COMPARISON:None FINDINGS: Heart size and pulmonary vascularity are normal. There are atherosclerotic changes in the aorta. No infiltrate, effusion or pneumothorax is seen. IMPRESSION: No acute cardiopulmonary process
== END 2018-03-17 14:18 | disposition home or self-care (01) ==
LOC: JP.ED 10:20
DX: R00.8 Other abnormalities of heart beat (principal); I10 Essential (primary) hypertension; Z79.82 Long term (current) use of aspirin; Z79.899 Other long term (current) drug therapy
CPT/HCPCS: 36415; 71046; 71046-26; 80053; 84443; 84484; 85025; 93005; 93010; 99284-25

== ENCOUNTER 2019-12-13 16:16 | Emergency (ER) | payer MEDICARE, BC ==
[2019-12-13] MEDS ORDERED: Alum Hydrox/Mag Hydrox/Simeth 15 ML, Lidocaine 2% 15 ML PO ONE ×2 (17:08)
--- NOTE | 2019-12-13 17:42 | EDM.PDOC ---
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 Food tastes bad to her. She reports nausea and occasional vomiting. Her BMs have been normal. She notes a fever of 100.1 F on occassion but not for over 1 week. No chills or sweating. No history of heart problems. She notes a sensitive stomach. She had a clinic visit 8 days ago and diagnosed with UTI and given Rx of Cipro. She thinks Cipro caused more stomach problems. - Related Data Allergies Allergy/AdvReac Type Severity Reaction Status Date / Time No Known Allergies Allergy Verified 12/13/19 16:31 Home Meds: Home Meds Aspirin [Ecotrin EC] 81 mg PO DAILY 05/16/16 [History] Hydrochlorothiazide 12.5 mg PO DAILY 05/16/16 [History] Metoprolol Succinate 25 mg PO DAILY 05/16/16 [History] Lactobacillus Acidophilus [Probiotic] 1 cap PO DAILY 10/25/16 [History] Sertraline [Zoloft] 50 mg PO DAILY 05/04/17 [History] Diphenoxylate HCl/Atropine [Lomotil] 1 tab PO ASDIRECTED PRN 03/17/18 [History] amLODIPine [Norvasc] 2.5 mg PO DAILY #30 tab 03/17/18 [Rx] Ciprofloxacin [Ciprofloxacin HCl] 500 mg PO BID 12/13/19 [History] Past Medical History HEENT History: Reports: Cataract Cardiovascular History: Reports: Heart Murmur, High Cholesterol, Hypertension Gastrointestinal History: Reports: Chronic Diarrhea, Colon Polyp, GERD Genitourinary History: Reports: None 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: Musculoskeletal History: Reports: Back Pain, Chronic Neurological History: Reports: Vertigo Psychiatric History: Reports: Anxiety, Depression - Infectious Disease History Infectious Disease History: Reports: C-Difficile, Measles, Mumps - Past Surgical History HEENT Surgical History: Reports: Adenoidectomy, Tonsillectomy Cardiovascular Surgical History: Reports: None Female Surgical History: Reports: Hysterectomy, Oophorectomy, Other (See Below) Other Female Surgeries/Procedures: bladder suspension Musculoskeletal Surgical History: Reports: Arthroscopic Knee Dermatological Surgical History: Reports: Skin Biopsy Social & Family History - Family History Family Medical History: Noncontributory - Tobacco Use Smoking Status *Q: Never Smoker - Caffeine Use Caffeine Use: Reports: Coffee, Soda - Recreational Drug Use Recreational Drug Use: No ED ROS GENERAL - Review of Systems Review Of Systems: See Below Constitutional: Reports: Fever, Decreased Appetite, Weight Loss. Denies: Chills , Night Sweats, Diaphoresis Respiratory: Reports: No Symptoms Cardiovascular: Reports: Chest Pain Endocrine: Reports: Polydypsia, Polyuria GI/Abdominal: Denies: Constipation, Diarrhea, Nausea : Reports: Dysuria Musculoskeletal: Reports: No Symptoms Skin: Reports: No Symptoms Neurological: Reports: No Symptoms Psychiatric: Reports: Anxiety Hematologic/Lymphatic: Reports: No Symptoms Immunologic: Reports: No Symptoms ED EXAM, GENERAL - Physical Exam Exam: See Below Exam Limited By: No Limitations General Appearance: Alert, WD/WN, No Apparent Distress Ears: Normal External Exam, Normal Canal Nose: Normal Inspection Throat/Mouth: Normal Inspection Respiratory/Chest: No Respiratory Distress, Lungs Clear, Normal Breath Sounds Cardiovascular: Regular Rate, Rhythm, No Murmur GI/Abdominal: Normal Bowel Sounds, Non-Tender Extremities: Normal Inspection, Normal Range of Motion Neurological: Alert, Oriented Course - Vital Signs Text/Narrative:: She has normal vital signs and exam. She has a normal chest xr, ECG, CBC, CMP, lipase and CRP. Her U/A is normal. She had a normal abd/pelvis CT. I believe her GI symptoms are related to gastritis. She can stop Cipro and use Pepcid as usual. She will f/u with her pcp. Her troponin is normal. Last Recorded V/S: Last Vital Signs Temp 36.4 C 12/13/19 16:41 Pulse 59 L 12/13/19 19:25 Resp 16 12/13/19 19:25 BP 181/64 H 12/13/19 19:25 Pulse Ox 98 12/13/19 19:25 - Orders/Labs/Meds Orders: Active Orders 24 hr Category Date Time Status Chest 2V [CR] Stat Exams 12/13/19 17:38 Taken Iopamidol [Isovue-300 (61%)] Med 12/13/19 18:15 Active 100 ml IV . DIRECTED Sodium Chloride 0.9% [Normal Saline] 100 ml Med 12/13/19 18:15 Active IV ASDIRECTED Medication Orders Sodium Chloride (Normal Saline) 100 mls @ 3 mls/sec IV ASDIRECTED [facility] Last Admin: 12/13/19 19:04 Dose: 3 mls/sec Iopamidol (Isovue-300 (61%)) 100 ml IV . DIRECTED [facility] Last Admin: 12/13/19 19:05 Dose: 100 ml Labs: Laboratory Tests 12/13/19 12/13/19 12/13/19 Range/Units 17:36 17:50 17:50 WBC 10.0 (4.5-11.0) K/uL RBC 4.59 (3.30-5.50) M/uL Hgb 13.7 (12.0-15.0) g/dL Hct 42.4 (36.0-48.0) % MCV 92 (80-98) fL MCH 30 (27-31) pg MCHC 32 (32-36) % Plt Count 315 (150-400) K/uL Neut % (Auto) 75 H (36-66) % Lymph % (Auto) 15 L (24-44) % [place] % (Auto) 9 H (2-6) % Eos % (Auto) 1 L (2-4) % Baso % (Auto) 0 (0-1) % Sodium 138 L (140-148) mmol/L Potassium 3.3 L (3.6-5.2) mmol/L Chloride 99 L (100-108) mmol/L Carbon Dioxide 30 (21-32) mmol/L Anion Gap 12.3 (5.0-14.0) mmol/L BUN 12 (7-18) mg/dL Creatinine 1.3 H (0.6-1.0) mg/dL Est Cr Clr Drug Dosing 32.50 mL/min Estimated GFR (MDRD) 39 L (>60) Glucose 112 H (74-106) mg/dL Calcium 9.2 (8.5-10.1) mg/dL Total Bilirubin 0.4 (0.2-1.0) mg/dL AST 20 (15-37) U/L ALT 26 (12-78) U/L Alkaline Phosphatase 94 (46-116) U/L Troponin I < 0.017 (0.000-0.056) ng/mL C-Reactive Protein 0.23 (0.0-0.3) mg/dL Total Protein 7.4 (6.4-8.2) g/dL Albumin 3.9 (3.4-5.0) g/dL Globulin 3.5 (2.3-3.5) g/dL Albumin/Globulin Ratio 1.1 L (1.2-2.2) Lipase 130 (73-393) U/L Urine Color (YELLOW) Urine Appearance (CLEAR) Urine pH (5.0-8.0) Ur Specific [place] (1.008-1.030) Urine Protein (NEGATIVE) mg/dL Urine Glucose (UA) (NEGATIVE) mg/dL Urine Ketones (NEGATIVE) mg/dL Urine Occult Blood (NEGATIVE) Urine Nitrite (NEGATIVE) Urine Bilirubin (NEGATIVE) Urine Urobilinogen (0.2-1.0) EU/dL Ur Leukocyte Esterase (NEGATIVE) Urine RBC (0-5) Urine WBC (0-5) Ur Epithelial Cells Amorphous Sediment Urine Bacteria Urine Mucus 12/13/19 Range/Units 17:51 WBC (4.5-11.0) K/uL RBC (3.30-5.50) M/uL Hgb (12.0-15.0) g/dL Hct (36.0-48.0) % MCV (80-98) fL MCH (27-31) pg MCHC (32-36) % Plt Count (150-400) K/uL Neut % (Auto) (36-66) % Lymph % (Auto) (24-44) % [place] % (Auto) (2-6) % Eos % (Auto) (2-4) % Baso % (Auto) (0-1) % Sodium (140-148) mmol/L Potassium (3.6-5.2) mmol/L Chloride (100-108) mmol/L Carbon Dioxide (21-32) mmol/L Anion Gap (5.0-14.0) mmol/L BUN (7-18) mg/dL Creatinine (0.6-1.0) mg/dL Est Cr Clr Drug Dosing mL/min Estimated GFR (MDRD) (>60) Glucose (74-106) mg/dL Calcium (8.5-10.1) mg/dL Total Bilirubin (0.2-1.0) mg/dL AST (15-37) U/L ALT (12-78) U/L Alkaline Phosphatase (46-116) U/L Troponin I (0.000-0.056) ng/mL C-Reactive Protein (0.0-0.3) mg/dL Total Protein (6.4-8.2) g/dL Albumin (3.4-5.0) g/dL Globulin (2.3-3.5) g/dL Albumin/Globulin Ratio (1.2-2.2) Lipase (73-393) U/L Urine Color Yellow (YELLOW) Urine Appearance Clear (CLEAR) Urine pH 6.5 (5.0-8.0) Ur Specific [place] 1.015 (1.008-1.030) Urine Protein Negative (NEGATIVE) mg/dL Urine Glucose (UA) Negative (NEGATIVE) mg/dL Urine Ketones Negative (NEGATIVE) mg/dL Urine Occult Blood Negative (NEGATIVE) Urine Nitrite Negative (NEGATIVE) Urine Bilirubin Negative (NEGATIVE) Urine Urobilinogen 0.2 (0.2-1.0) EU/dL Ur Leukocyte Esterase Negative (NEGATIVE) Urine RBC 0-5 (0-5) Urine WBC 0-5 (0-5) Ur Epithelial Cells Few Amorphous Sediment Rare Urine Bacteria Not seen Urine Mucus Not seen Meds: Medications Generic Name Dose Route Start Last Admin Trade Name Freq PRN Reason Stop Dose Admin Sodium Chloride 100 mls @ 3 mls/sec 12/13/19 18:15 12/13/19 19:04 Normal Saline IV 3 mls/sec ASDIRECTED SHILA Administration Iopamidol 100 ml 12/13/19 18:15 12/13/19 19:05 Isovue-300 (61%) IV 100 ml . DIRECTED SHILA Administration Discontinued Medications Generic Name Dose Route Start Last Admin Trade Name Freq PRN Reason Stop Dose Admin Al Hydroxide/Mg Hydroxide 15 0 ml 12/13/19 17:08 12/13/19 17:14 ml/ Lidocaine HCl 15 ml PO 12/13/19 17:09 15 ml ONETIME ONE Administration Sodium Chloride 10 ml 12/13/19 18:01 12/13/19 19:04 Saline Flush FLUSH 12/13/19 18:02 10 ml ONETIME ONE Administration Departure - Departure Time of Disposition: 19:50 Disposition: DC[facility] 05 Condition: Good Clinical Impression: Epigastric pain - Discharge Information *PRESCRIPTION DRUG MONITORING PROGRAM REVIEWED*: No *COPY OF PRESCRIPTION DRUG MONITORING REPORT IN PATIENT JANETH: No Referrals: PCP,None [Primary Care Provider] - Forms: ED Department Discharge Additional Instructions: Continue to take Pepcid and followup with your doctor as needed. Return to the ER as needed. Sepsis Event Note (ED) - Evaluation Sepsis Screening Result: No Definite Risk - Focused Exam Vital Signs: Vital Signs Temp Pulse Resp BP Pulse Ox 12/13/19 19:25 59 L 16 181/64 H 98 12/13/19 18:42 64 12 162/69 H 98 12/13/19 17:29 12 169/76 H 99 12/13/19 16:41 36.4 C 62 12 149/66 H 97 - My Orders Last 24 Hours: My Active Orders 12/13/19 17:38 Chest 2V [CR] Stat 12/13/19 18:15 Iopamidol [Isovue-300 (61%)] 100 ml IV . DIRECTED Sodium Chloride 0.9% [Normal Saline] 100 ml IV ASDIRECTED - Assessment/Plan Last 24 Hours: My Active Orders 12/13/19 17:38 Chest 2V [CR] Stat 12/13/19 18:15 Iopamidol [Isovue-300 (61%)] 100 ml IV . DIRECTED Sodium Chloride 0.9% [Normal Saline] 100 ml IV ASDIRECTED
[2019-12-13] MEDS ORDERED: Sodium Chloride 0.9% 10 ML Syringe FLUSH ONE (18:01)
[2019-12-13] MEDS ORDERED: Iopamidol 612 MG/ML 100 ML Bottle IV SCH (18:15)
[2019-12-13] MEDS ORDERED: Sodium Chloride 0.9% 100 ML IV SCH (18:15)
[2019-12-13 19:27] VITALS: BP 181/64; PULSE 59
--- NOTE | 2019-12-13 19:27 | CRLCT ---
INDICATION: Weight loss and anorexia. TECHNIQUE: CT abdomen and pelvis acquired with 100 cc Isovue-300 IV contrast. COMPARISON: None. FINDINGS: Lower chest: Unremarkable. Liver: Single small simple appearing cyst. Otherwise unremarkable liver. Gallbladder and bile ducts: Unremarkable. No stones or inflammation. No biliary dilatation. Pancreas: Unremarkable. No mass or inflammation. Spleen: Unremarkable. Normal in size. No masses. Adrenal glands: Unremarkable. No nodules. Kidneys: Few small benign-appearing cysts. Otherwise unremarkable kidneys. GI tract: Unremarkable. Normal in caliber. No sign of mass or inflammation. Appendix not visualized. Vasculature: Aortic atherosclerosis without aneurysm. Mesenteric arteries are patent. Lymph nodes: No lymphadenopathy. Omentum/Peritoneum/Abdominal Wall: Unremarkable. No sign of mass or infiltration. No free air or significant free fluid. Pelvis: Unremarkable. Bones: Unremarkable for age. IMPRESSION: No acute or significant findings in the abdomen or pelvis. No specific finding to explain weight loss or anorexia. Dictated by Dangelo Pratt MD @ 12/13/2019 7:25:21 PM Please note that all CT scans at this facility use dose modulation, iterative reconstruction, and/or weight-based dosing when appropriate to reduce radiation dose to as low as reasonably achievable. Dictated by: Dangelo Pratt MD @ 12/13/2019 19:25:29 (Electronically Signed)
--- NOTE | 2019-12-14 09:56 | CR ---
CHEST: 2 view CLINICAL HISTORY:Cough COMPARISON:2017 FINDINGS: The heart size, pulmonary vascularity and hilar structures are normal. No infiltrate effusion or pneumothorax is seen. Lungs are mildly hyperaerated IMPRESSION: No acute cardiopulmonary process. Mild hyperaeration
== END 2019-12-13 20:02 | disposition designated cancer center or children's hospital (05) ==
LOC: JP.ED 16:16
DX: R10.13 Epigastric pain (principal); F32.9 Major depressive disorder, single episode, unspecified; F41.9 Anxiety disorder, unspecified; Z79.82 Long term (current) use of aspirin; Z79.899 Other long term (current) drug therapy
CPT/HCPCS: 36415; 71046; 74177; 80053; 81001; 83690; 84484; 85025; 86140; 93005; 93010; 99283; 99285; A9270; J7050; Q9967

== ENCOUNTER 2019-12-15 11:50 | Emergency (ER) | payer MEDICARE, BC ==
[2019-12-15 12:13] VITALS: BP 124/75; PULSE 78
[2019-12-15] MEDS ORDERED: Ondansetron 4 MG/2 ML SDV IVPUSH ONE (13:02)
--- NOTE | 2019-12-15 13:03 | EDM.PDOC ---
ED HPI GENERAL MEDICAL PROBLEM - General Chief Complaint: General Stated Complaint: ABD ISSUES? Time Seen by Provider: 12/15/19 13:00 Source of Information: Reports: Patient History Limitations: Reports: No Limitations - History of Present Illness INITIAL COMMENTS - FREE TEXT/NARRATIVE: pt is feeling very depressed but not suicidal. She is nauseated and she has not been eating. She is feeling very nauseated. Onset: Gradual Duration: Day(s): Location: Reports: Abdomen Associated Symptoms: Reports: Nausea/Vomiting, Other (pt is not eating. ) Abdomen Pain Score (Numeric/FACES): 9 - Related Data Allergies Allergy/AdvReac Type Severity Reaction Status Date / Time No Known Allergies Allergy Verified 12/13/19 16:31 Home Meds: Home Meds Aspirin [Ecotrin EC] 81 mg PO DAILY 05/16/16 [History] Hydrochlorothiazide 12.5 mg PO DAILY 05/16/16 [History] Metoprolol Succinate 25 mg PO DAILY 05/16/16 [History] Lactobacillus Acidophilus [Probiotic] 1 cap PO DAILY 10/25/16 [History] Sertraline [Zoloft] 50 mg PO DAILY 05/04/17 [History] Diphenoxylate HCl/Atropine [Lomotil] 1 tab PO ASDIRECTED PRN 03/17/18 [History] amLODIPine [Norvasc] 2.5 mg PO DAILY #30 tab 03/17/18 [Rx] Past Medical History HEENT History: Reports: Cataract Cardiovascular History: Reports: Heart Murmur, High Cholesterol, Hypertension Gastrointestinal History: Reports: Chronic Diarrhea, Colon Polyp, GERD Genitourinary History: Reports: None 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: Musculoskeletal History: Reports: Back Pain, Chronic Neurological History: Reports: Vertigo Psychiatric History: Reports: Anxiety, Depression - Infectious Disease History Infectious Disease History: Reports: C-Difficile, Measles, Mumps - Past Surgical History HEENT Surgical History: Reports: Adenoidectomy, Tonsillectomy Cardiovascular Surgical History: Reports: None Female Surgical History: Reports: Hysterectomy, Oophorectomy, Other (See Below) Other Female Surgeries/Procedures: bladder suspension Musculoskeletal Surgical History: Reports: Arthroscopic Knee Dermatological Surgical History: Reports: Skin Biopsy Social & Family History - Family History Family Medical History: Noncontributory - Tobacco Use Smoking Status *Q: Never Smoker - Caffeine Use Caffeine Use: Reports: Tea - Recreational Drug Use Recreational Drug Use: No ED ROS GENERAL - Review of Systems Review Of Systems: See Below Constitutional: Reports: Weakness, Fatigue, Decreased Appetite HEENT: Reports: No Symptoms Respiratory: Reports: No Symptoms Cardiovascular: Reports: No Symptoms Endocrine: Reports: No Symptoms GI/Abdominal: Reports: Abdominal Pain, Other (pt is havuing nausea and she is not eating, She is convinced that the cipro is the cause of the nausea. She s wheeping and crying. Feeling very depressed. She is concerned that she is never going to get better. ) : Reports: No Symptoms, Other (pt did have a recent UTI) Skin: Reports: No Symptoms Neurological: Reports: No Symptoms Psychiatric: Reports: Anxiety, Depression Hematologic/Lymphatic: Reports: No Symptoms ED EXAM, GENERAL - Physical Exam Exam: See Below Free Text/Narrative:: pt arrived feeling depressed because she is feeling so sick. She is not vomiting. She is feeling nauseated and she is not able to eat She is crying. Exam Limited By: No Limitations General Appearance: Alert, Anxious, Mild Distress Ears: Normal TMs Nose: Normal Inspection Throat/Mouth: Normal Inspection Head: Atraumatic Neck: Normal Inspection Respiratory/Chest: No Respiratory Distress Cardiovascular: Regular Rate, Rhythm GI/Abdominal: Other (mild tenderness in the upper abdoman. ) (Female) Exam: Deferred Rectal (Female) Exam: Deferred Back Exam: Normal Inspection Extremities: Normal Inspection Neurological: Alert, Oriented, Normal Cognition Psychiatric: Anxious, Tearful Course - Vital Signs Last Recorded V/S: Last Vital Signs Temp 37.1 C 12/15/19 12:16 Pulse 78 12/15/19 12:16 Resp 12 12/15/19 12:16 BP 124/75 12/15/19 12:16 Pulse Ox 98 12/15/19 12:16 - Orders/Labs/Meds Orders: Active Orders 24 hr Category Date Time Status Sodium Chloride 0.9% [Normal Saline] 1,000 ml Med 12/15/19 13:15 Active IV ASDIRECTED Medication Orders Sodium Chloride (Normal Saline) 1,000 mls @ 999 mls/hr IV ASDIRECTED SHILA Last Admin: 12/15/19 13:30 Dose: 999 mls/hr Labs: Laboratory Tests 12/15/19 12/15/19 Range/Units 13:02 14:27 WBC 8.4 (4.5-11.0) K/uL RBC 4.57 (3.30-5.50) M/uL Hgb 13.6 (12.0-15.0) g/dL Hct 42.0 (36.0-48.0) % MCV 92 (80-98) fL MCH 30 (27-31) pg MCHC 32 (32-36) % Plt Count 318 (150-400) K/uL Neut % (Auto) 75 H (36-66) % Lymph % (Auto) 15 L (24-44) % [place] % (Auto) 9 H (2-6) % Eos % (Auto) 1 L (2-4) % Baso % (Auto) 0 (0-1) % Urine Color Yellow (YELLOW) Urine Appearance Slightly cloudy A (CLEAR) Urine pH 6.0 (5.0-8.0) Ur Specific [place] 1.015 (1.008-1.030) Urine Protein Negative (NEGATIVE) mg/dL Urine Glucose (UA) Negative (NEGATIVE) mg/dL Urine Ketones Negative (NEGATIVE) mg/dL Urine Occult Blood Negative (NEGATIVE) Urine Nitrite Negative (NEGATIVE) Urine Bilirubin Negative (NEGATIVE) Urine Urobilinogen 0.2 (0.2-1.0) EU/dL Ur Leukocyte Esterase Negative (NEGATIVE) Urine RBC 0-5 (0-5) Urine WBC 0-5 (0-5) Ur Epithelial Cells Few Amorphous Sediment Not seen Urine Bacteria Few Urine Mucus Not seen Meds: Medications Generic Name Dose Route Start Last Admin Trade Name Freq PRN Reason Stop Dose Admin Sodium Chloride 1,000 mls @ 999 mls/hr 12/15/19 13:15 12/15/19 13:30 Normal Saline IV 999 mls/hr ASDIRECTED SHILA Administration Discontinued Medications Generic Name Dose Route Start Last Admin Trade Name Freq PRN Reason Stop Dose Admin Al Hydroxide/Mg Hydroxide 15 0 ml 12/15/19 14:25 12/15/19 14:33 ml/ Lidocaine HCl 15 ml PO 12/15/19 14:26 30 ml ONETIME ONE Administration Diazepam 2 mg 12/15/19 14:51 12/15/19 14:58 Valium PO 12/15/19 14:52 2 mg ONETIME ONE Administration Famotidine 20 mg 12/15/19 14:26 12/15/19 14:33 Pepcid PO 12/15/19 14:27 20 mg ONETIME ONE Administration Lorazepam 0.5 mg 12/15/19 14:39 12/15/19 14:53 Ativan PO 12/15/19 14:40 Not Given ONETIME ONE Ondansetron HCl 4 mg 12/15/19 13:02 12/15/19 13:37 Zofran IVPUSH 12/15/19 13:03 4 mg ONETIME ONE Administration - Re-Assessments/Exams Free Text/Narrative Re-Assessment/Exam: 12/15/19 15:04 pt has normal UA. Her wbc is normal will plan to do a gastro. Departure - Departure Time of Disposition: 14:48 Disposition: Home, Self-Care 01 Condition: Fair Clinical Impression: Upper abdominal pain, Depression - Discharge Information Instructions: Flank Pain, Adult, [id number] Referrals: PCP,None [Primary Care Provider] - Forms: ED Department Discharge Care Plan Goals: increase zoloft to 1 and 1/2 tabs daily, Use the pepcid ac bid regularly, zoforan 4 mg q6h prn for nausea, try to eat frequently rtc for a gastro. valium 2 mg q8h for marked anxiety. follow up appt with Dr Neri. Sepsis Event Note (ED) - Evaluation Sepsis Screening Result: No Definite Risk - Focused Exam Vital Signs: Vital Signs Temp Pulse Resp BP Pulse Ox 12/15/19 12:16 37.1 C 78 12 124/75 98 12/15/19 12:10 37.1 C 78 12 124/75 98 - My Orders Last 24 Hours: My Active Orders 12/15/19 13:15 Sodium Chloride 0.9% [Normal Saline] 1,000 ml IV ASDIRECTED - Assessment/Plan Last 24 Hours: My Active Orders 12/15/19 13:15 Sodium Chloride 0.9% [Normal Saline] 1,000 ml IV ASDIRECTED
[2019-12-15] MEDS ORDERED: Sodium Chloride 0.9% 1,000 ML IV SCH (13:15)
[2019-12-15] MEDS ORDERED: Alum Hydrox/Mag Hydrox/Simeth 15 ML, Lidocaine 2% 15 ML PO ONE ×2 (14:25)
[2019-12-15] MEDS ORDERED: Famotidine 20 MG Tab PO ONE (14:26)
[2019-12-15] MEDS ORDERED: LORazepam 0.5 MG Tab PO ONE (14:39)
[2019-12-15] MEDS ORDERED: Diazepam 2 MG Tab PO ONE (14:51)
== END 2019-12-15 15:25 | disposition home or self-care (01) ==
LOC: JP.ED 11:50
DX: F32.9 Major depressive disorder, single episode, unspecified (principal); R10.10 Upper abdominal pain, unspecified; R11.2 Nausea with vomiting, unspecified; I10 Essential (primary) hypertension; F41.9 Anxiety disorder, unspecified; Z79.82 Long term (current) use of aspirin; Z79.899 Other long term (current) drug therapy
CPT/HCPCS: 36415; 81001; 85025; 96361; 96374; 99284; A9270; J2405; J7030

== ENCOUNTER 2019-12-28 05:26 | Day surgery (SDC) | payer MEDICARE, BC ==
[2019-12-28] MEDS ORDERED: Dextrose 5%-Lactated Ringers 1,000 ML IV SCH (06:30)
[2019-12-28] MEDS ORDERED: fentaNYL 100 MCG/2 ML SDV ONE (06:54)
[2019-12-28] MEDS ORDERED: Propofol 200 MG/20 ML SDV ONE (06:54)
[2019-12-28] MEDS ORDERED: Ampicillin/Sulbactam Na 3 GM in Sodium Chloride 0.9% 100 ML IV ONE (07:15)
[2019-12-28 09:30] VITALS: BP 136/78; PULSE 57
--- NOTE | 2020-01-04 12:26 | OR ---
DATE OF PROCEDURE: 12/28/2019 SURGEON: Abhijit Escamilla MD PREOPERATIVE DIAGNOSES: Nausea and epigastric discomfort. POSTOPERATIVE DIAGNOSES: Nausea and epigastric discomfort associated with diffuse gastritis. OPERATIVE PROCEDURE: Esophagogastroduodenoscopy with antral biopsies for CLOtest. ANESTHESIA: IV sedation. INDICATION FOR PROCEDURE: This is an 84-year-old female presenting with some ongoing epigastric discomfort and nausea. She presently is prescribed omeprazole and Pepcid, but has been taking those somewhat intermittently. Plan is to proceed with an upper GI endoscopy with biopsies as indicated. Potential risks including bleeding and perforation were discussed, and the patient wishes to proceed. DETAILS OF PROCEDURE: The patient was taken to the operating room and placed in a left lateral decubitus position. IV sedation was administered, after which the upper GI endoscope was passed orally through the length of the esophagus and into the stomach with retroflexion view of the fundus, and thereafter through the pyloric channel and into the proximal duodenum. Findings included normal hypopharynx, larynx, upper esophageal sphincter, and esophageal body. EG junction had no significant hiatal hernia or inflammation in that area. Within the stomach, there was more or less diffuse gastritis. This was associated with small amount of retained bile. The gastritis was most intense in the antrum. There were no erosions or ulcers seen. There was mild amount of duodenitis in the duodenal bulb of that area. The duodenum had normalized beyond that point. At this point, biopsies were obtained from the antrum and sent for CLOtest for H pylori. Minimal bleeding from the biopsy site was seen, and the procedure then concluded. The patient will be instructed to take the omeprazole and Pepcid on a daily basis at this time. Will also go home on Zofran 4 mg ODT to be taken prophylactically before meals, with #30 being prescribed with refill x2. The patient will be set up to see Dr. Neri in followup in 2 weeks. Abhijit Escamilla MD /[id number]
== END 2019-12-28 09:55 | disposition home or self-care (01) ==
LOC: JP.SDS 05:26
PROVIDERS: ATTEND Surgery
DX: K29.70 Gastritis, unspecified, without bleeding (principal); I10 Essential (primary) hypertension; K21.9 Gastro-esophageal reflux disease without esophagitis
CPT/HCPCS: 43239; 87081; J0295; J2704; J3010; J7050; J7121

== ENCOUNTER 2022-05-10 07:29 | Day surgery (SDC) | payer MEDICARE, BC ==
[2022-05-10 07:50] VITALS: PULSE 63
[2022-05-10] MEDS ORDERED: Sodium Chloride 0.9% 10 ML Syringe FLUSH PRN (08:30)
[2022-05-10 09:21] VITALS: BP 139/69
== END 2022-05-10 09:49 | disposition home or self-care (01) ==
LOC: JP.SDS 07:29
PROVIDERS: ATTEND Ophthalmology
DX: H25.12 Age-related nuclear cataract, left eye (principal); I10 Essential (primary) hypertension; K21.9 Gastro-esophageal reflux disease without esophagitis
CPT/HCPCS: 66984; J3490

== ENCOUNTER 2023-08-26 16:35 | Emergency (ER) | payer MEDICARE, BC ==
[2023-08-26 18:24] VITALS: BP 167/91; PULSE 71
[2023-08-26 19:21] LABS: BASOPHILS PERCENT AUTO 0.3 % (0.1-1.3); EOSINOPHILS ABSOLUTE AUTO 0.03 K/uL (0.00-0.40); EOSINOPHILS PERCENT AUTO 0.5 % (0.0-5.4); HEMATOCRIT 37.3 % (34.3-46.0); HEMOGLOBIN 12.6 g/dL (11.2-15.5); IMMATURE GRAN PERCENT AUTO 0.2 % (0.0-0.7); LYMPHOCYTES ABSOLUTE AUTO 1.52 K/uL (0.8-3.3); LYMPHOCYTES PERCENT AUTO 23.7 % (11.4-47.7); MEAN CORPUSCULAR HEMOGLOBIN 30.2 pg (31.6-35.5); MEAN CORPUSCULAR HGB CONC 33.8 g/dL (31.6-35.5); MEAN CORPUSCULAR VOLUME 89.4 fL (81.4-99.0); MONOCYTES ABSOLUTE AUTO 0.53 K/uL (0.20-0.90); MONOCYTES PERCENT AUTO 8.3 % (3.3-12.6); NEUTROPHILS ABSOLUTE AUTO 4.31 K/uL (1.0-7.6); PLATELET COUNT,PLT 236 K/uL (130-375); RED BLOOD CELL COUNT 4.17 M/uL (3.77-5.24); WHITE BLOOD CELL COUNT,WBC 6.4 K/uL (3.2-11.0)
[2023-08-26 19:23] LABS: BASOPHILS ABSOLUTE AUTO 0.02 K/uL (0.00-0.10); IMMATURE GRAN ABSOLUTE AUTO 0.01 K/uL (0.00-0.23)
[2023-08-26 19:36] LABS: CALCIUM 8.8 mg/dL (8.5-10.1); CREATININE 1.1 mg/dL (0.6-1.0); EST CRCL DRUG DOSING (CG) 34.3 mL/min; POTASSIUM,K 3.3 mmol/L (3.6-5.2)
[2023-08-26 19:37] LABS: ANION GAP 13.3 mmol/L (5.0-14.0)
== END 2023-08-26 20:32 | disposition home or self-care (01) ==
LOC: JP.ED 16:35
DX: R68.2 Dry mouth, unspecified (principal); I10 Essential (primary) hypertension; Z79.82 Long term (current) use of aspirin; Z79.899 Other long term (current) drug therapy
CPT/HCPCS: 36415; 80048; 85025; 99284

== ENCOUNTER 2024-06-05 11:33 | Emergency (ER) | payer MEDICARE, BC ==
[2024-06-05] MEDS ORDERED: Sodium Chloride 0.9% 10 ML Syringe FLUSH PRN (12:02)
[2024-06-05 12:12] LABS: BASOPHILS PERCENT AUTO 0.3 % (0.1-1.3); HEMATOCRIT 40.8 % (34.3-46.0); HEMOGLOBIN 13.5 g/dL (11.2-15.5); IMMATURE GRAN PERCENT AUTO 0.3 % (0.0-0.7); LYMPHOCYTES ABSOLUTE AUTO 0.95 K/uL (0.8-3.3); LYMPHOCYTES PERCENT AUTO 12.8 % (11.4-47.7); MEAN CORPUSCULAR HEMOGLOBIN 31.6 pg (31.6-35.5); MEAN CORPUSCULAR HGB CONC 33.1 g/dL (31.6-35.5); MEAN CORPUSCULAR VOLUME 95.6 fL (81.4-99.0); MONOCYTES ABSOLUTE AUTO 0.57 K/uL (0.20-0.90); MONOCYTES PERCENT AUTO 7.7 % (3.3-12.6); NEUTROPHILS ABSOLUTE AUTO 5.88 K/uL (1.0-7.6); NEUTROPHILS PERCENT AUTO 78.9 % (40.0-78.1); PLATELET COUNT,PLT 179 K/uL (130-375); RED BLOOD CELL COUNT 4.27 M/uL (3.77-5.24); WHITE BLOOD CELL COUNT,WBC 7.4 K/uL (3.2-11.0)
[2024-06-05 12:15] LABS: BASOPHILS ABSOLUTE AUTO 0.02 K/uL (0.00-0.10); IMMATURE GRAN ABSOLUTE AUTO 0.02 K/uL (0.00-0.23)
[2024-06-05 12:41] LABS: ANION GAP 14.4 mmol/L (5.0-14.0); C-REACTIVE PROTEIN 0.66 mg/dL (<0.50); CALCIUM 9.3 mg/dL (8.5-10.1); CREATININE 1.3 mg/dL (0.6-1.0); EST CRCL DRUG DOSING (CG) 27.85 mL/min; POTASSIUM,K 3.4 mmol/L (3.6-5.2); TROPONIN I HIGH SENSITIVITY 26.8 pg/mL (<=60.3)
[2024-06-05] MEDS: Sodium Chloride 0.9% 10 ML Syringe FLUSH PRN (13:59)
[2024-06-05] MEDS: Iopamidol 755 Mg/ML 100 ML Bottle IV SCH (13:59)
[2024-06-05] MEDS: Sodium Chloride 0.9% 100 ML IV ONE (13:59)
[2024-06-05] MEDS: Heparin Sodium 5,000 Units/ML Vial IVPUSH ONE (15:06)
[2024-06-05] MEDS: Furosemide 40 MG/4 ML VIAL IVPUSH ONE (15:20)
[2024-06-05] MEDS: Heparin Sodium/D5W 25,000 UNITS/500 ML BAG IV SCH (15:22)
[2024-06-05] MEDS: Diltiazem 25 MG/5 ML SDV IVPUSH ONE (15:30)
[2024-06-05 15:34] VITALS: BP 127/91; PULSE 117
[2024-06-06] MEDS ORDERED: Furosemide 40 MG/4 ML VIAL IVPUSH ONE (14:59)
== END 2024-06-05 18:39 ==
LOC: JP.ED 11:33
DX: I26.09 Other pulmonary embolism with acute cor pulmonale (principal); I48.91 Unspecified atrial fibrillation; I31.39 Other pericardial effusion (noninflammatory); J90 Pleural effusion, not elsewhere classified; R79.82 Elevated C-reactive protein (CRP); I10 Essential (primary) hypertension; K21.9 Gastro-esophageal reflux disease without esophagitis; Z90.49 Acquired absence of other specified parts of digestive tract; Z90.710 Acquired absence of both cervix and uterus; Z79.82 Long term (current) use of aspirin; Z79.899 Other long term (current) drug therapy
CPT/HCPCS: 36415; 71275; 80048; 83880; 84145; 84484; 85025; 85379; 85730; 86140; 93005; 96365; 96366; 96375; 99285; J1644; J1940; J3490; Q9967; 93010